=== PATIENT | male | born 1970 | race African-American/Black ===

== ENCOUNTER 2018-12-28 16:56 | Emergency (ER) | payer OTHER ==
[~2018-12-28] VITALS: Ht 177.8 cm; Wt 81.7 kg
[2018-12-28 17:31] LABS: URINE BILIRUBIN NEGATIVE (Negative); URINE BLOOD NEGATIVE (Negative); URINE CLARITY CLEAR; URINE COLOR YELLOW; URINE GLUCOSE-RANDOM* 3+ (Negative); URINE KETONES TRACE (Negative); URINE LEUKOCYTES-REFLEX NEGATIVE (Negative); URINE NITRITE-REFLEX NEGATIVE (Negative); URINE PROTEIN (DIPSTICK) NEGATIVE (Negative); URINE UROBILINOGEN 0.2 E.U./dl (0.2-1.0)
[2018-12-28 19:13] LABS: BE(vivo) -0.1 mmol/L (-2 to +3); HCO3 25.1 mmol/L (22.0-26.0); PCO2 VENOUS 42.8 mmHg (41.0-51.0)
[2018-12-28 19:26] LABS: ABSOLUTE NEUTROPHILS 2.4 thou/uL (1.4-8.2); BASOPHILS 1.3 % (0.0-2.0); EOSINOPHILS 0.7 % (0.0-3.0); HEMATOCRIT 45.6 % (42.0-52.0); HEMOGLOBIN 15.2 gm/dL (14.0-18.0); LYMPHOCYTES 43.2 % (24.0-44.0); MCH 29.5 pg (26.0-34.0); MCHC 33.4 g/dL (28.0-37.0); MCV 88.2 fL (80.0-100.0); MONOCYTES 6.9 % (1.0-8.0); PLATELET COUNT 218 thou/uL (150-400); POLYS 47.9 % (36.0-66.0); RBC 5.17 mil/uL (4.50-6.00); WBC 5.1 thou/uL (4.0-11.0)
[2018-12-28 19:35] LABS: ALBUMIN 3.6 g/dL (3.4-5.0); CREATININE 1.2 mg/dL (0.7-1.3); POTASSIUM 4.7 mmol/L (3.5-5.1); TOTAL BILIRUBIN 0.6 mg/dL (<0.1-1.0); TOTAL PROTEIN 7.2 g/dL (6.4-8.2)
[2018-12-28] MEDS ORDERED: GLUCOPHAGE XR500 MG PO (21:25)
[2018-12-28] MEDS ORDERED: [UNRECOGNIZED DRUG - OTHER] SUBQ (22:44)
[2018-12-28 22:51] VITALS: BP 119/82
[2018-12-29 05:07] LABS: GLYCOHEMOGLOBIN (HGB A1C) 15.4 % (4.8-5.6)
== END 2018-12-28 22:52 | disposition home or self-care (01) ==
LOC: ER 16:56
PROVIDERS: Emergency Medicine; Physician Assistant
DX: R73.9 Hyperglycemia, unspecified (principal); Z88.6 Allergy status to analgesic agent